=== PATIENT | female | born 1990 | race Caucasian/White ===

== ENCOUNTER 2018-06-18 21:06 | Emergency (ER) | payer BC ==
[~2018-06-18] VITALS: Ht 160 cm; Wt 59.0 kg
[2018-06-18 21:07] VITALS: BP 114/65
[2018-06-18 21:11] VITALS: BP 114/65
[2018-06-18] MEDS ORDERED: ROBAXIN-750750 MG PO (21:41)
[2018-06-18] MEDS ORDERED: IBUPROFEN600 MG ORAL (21:41)
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
[2018-06-18 22:14] VITALS: BP 119/71
[2018-06-18 22:18] VITALS: BP 121/73
== END 2018-06-18 22:18 | disposition home or self-care (01) ==
LOC: EDBD 21:06 → EMR 21:29
DX: F07.81 Postconcussional syndrome (principal); R42 Dizziness and giddiness; V43.52XA Car driver injured in collision with other type car in traffic accident, initial encounter; Y92.488 Other paved roadways as the place of occurrence of the external cause
CPT/HCPCS: 99283